=== PATIENT | female | born 1970 | race Caucasian/White ===

== ENCOUNTER 2024-09-02 12:49 | Outpatient (REF) | payer BC, SELFPAY ==
[2024-09-02 13:17] LABS: MANUAL DIFF FLAG NO
[2024-09-02 13:37] LABS: Basophils Percent Auto 0.6 % (0-2); Eosinophils Absolute Auto 0.1 X10*3/uL (0.0-0.4); Eosinophils Percent Auto 1.1 % (0-4); Hematocrit 42.2 % (37.0-47.0); Hemoglobin 14.1 g/dl (12.0-16.0); Imm Gran Abs Auto 0.02 X10*3/uL (0.00-0.03); Imm Gran Pct Auto 0.3 % (0.0-0.4); Lymphocytes Absolute Auto 2.3 X10*3/uL (1.2-4.9); Lymphocytes Percent Auto 34.3 % (20-40); Mean Corpuscular HGB Conc 33.4 g/dl (31.0-35.0); Mean Corpuscular Hemoglobin 29.1 pg (27.0-33.0); Mean Corpuscular Volume 87.2 fL (80.0-98.0); Mean Platelet Volume 9.3 fL (9.4-12.3); Monocytes Absolute Auto 0.6 X10*3/uL (0.1-1.2); Monocytes Percent Auto 8.6 % (2-11); Neutrophils Absolute Auto 3.6 x10*3/uL (2.0-8.3); Neutrophils Percent Auto 55.1 % (45-73); Platelet Count 253 X10*3/uL (160-400); Red Blood Count 4.84 X10*6/uL (4.20-5.50); Red Cell Distribution Width 12.1 % (11.0-16.0); White Blood Count 6.6 X10*3/uL (4.8-10.8)
[2024-09-02 14:05] LABS: Alanine Aminotransferase 38 U/L (0-31); Albumin Level 4.6 g/dL (3.5-5.0); Alkaline Phosphatase 94 U/L (39-117); Amylase 48 U/L (28-100); Anion Gap 9 (12-20); Aspartate Amino Transferase 31 U/L (5-31); Bilirubin Direct 0.2 mg/dL (0.0-0.5); Bilirubin Total 0.7 mg/dL (0.0-1.0); Blood Urea Nitrogen 12 mg/dL (9-16); C Reactive Protein 0.71 mg/dL (< or = 0.50); Calcium 9.9 mg/dL (8.4-10.2); Carbon Dioxide 28 mmol/L (22-29); Chloride 107 mmol/L (96-108); Estimated Glomerular Filt Rate > 60; Glucose Random 93 mg/dL (60-115); Lipase 16 U/L (8-78); Potassium 4.8 mmol/L (3.3-5.1); Sodium 139 mmol/L (135-145); Total Protein 7.6 g/dL (6.5-8.0)
[2024-09-02 14:37] LABS: Erythrocyte Sedimentation Rate 11 MM/HR (0-20)
[2024-09-04 00:48] LABS: Immunoglobulin A 177 mg/dL (47-310)
[2024-09-06 19:53] LABS: Gliadin Deamidated IgA Ab <1.0 U/mL; Gliadin Deamidated IgG Ab <1.0 U/mL; Transglutaminase Ab IgG <1.0 U/mL; Transglutaminase IgA <1.0 U/mL
[2024-09-07 23:59] LABS: Endomysial IgA Antibody Negative (Negative)
== END 2024-09-02 12:50 | disposition home or self-care (01) ==
LOC: HO.10HDL 12:49
PROVIDERS: Visit Provider Internal Medicine
DX: R11.2 Nausea with vomiting, unspecified (principal)
CPT/HCPCS: 36415; 80048; 80076; 82150; 82784; 83690; 85025; 85652; 86140; 86231; 86258; 86364

== ENCOUNTER 2024-09-07 16:55 | Outpatient (REF) | payer BC, SELFPAY ==
[2024-09-08 09:02] LABS: Adenovirus F 40/41 Not Detected (Not Detect.); Astrovirus Not Detected (Not Detect.); Campylobacter Not Detected (Not Detect.); Cryptosporidium Not Detected (Not Detect.); Cyclospora cayetanensis Not Detected (Not Detect.); E. coli EAEC Not Detected (Not Detect.); E. coli EPEC Not Detected (Not Detect.); E. coli ETEC Not Detected (Not Detect.); E. coli STEC Not Detected (Not Detect.); Entamoeba histolytica Not Detected (Not Detect.); Giardia lamblia Not Detected (Not Detect.); Norovirus GI/GII Not Detected (Not Detect.); Plesiomonas shigelloides Not Detected (Not Detect.); Rotavirus A Not Detected (Not Detect.); Salmonella Not Detected (Not Detect.); Sapovirus Not Detected (Not Detect.); Shigella sp./EIEC Not Detected (Not Detect.); Vibrio Not Detected (Not Detect.); Vibrio Cholerae Not Detected (Not Detect.); Yersinia enterocolitica Not Detected (Not Detect.)
== END 2024-09-07 16:56 | disposition home or self-care (01) ==
LOC: HO.LNP 16:55
PROVIDERS: Visit Provider Internal Medicine
DX: R11.2 Nausea with vomiting, unspecified (principal)
CPT/HCPCS: 87329; 87507

== ENCOUNTER 2024-09-09 09:03 | Outpatient (REF) | payer BC, SELFPAY ==
--- NOTE | ~2024-09-09 | US_ITS ---
EXAMINATION: US ABDOMEN COMPLETE CLINICAL INFORMATION: Nausea with vomiting. COMPARISON: None available. TECHNIQUE: Real-time imaging of the abdominal viscera using grayscale and color Doppler technique. FINDINGS: PANCREAS: No peripancreatic fluid collections ABDOMINAL AORTA: 2.2 cm in the proximal segment.. INFERIOR VENA CAVA: Not identified LIVER: Liver is enlarged. Increased echotexture. No nodular surface. No solid or cystic lesion. Main portal vein is patent with normal hepatopedal flow direction. No intrahepatic biliary ductal dilatation. GALLBLADDER: Fluid-filled. No pericholecystic fluid collection or gallbladder wall thickening. COMMON BILE DUCT: Measures 2 mm in diameter. RIGHT KIDNEY: Measures 11 cm. Normal echotexture. Normal renal cortical medullary junction. No solid or cystic lesion. Normal flow on color Doppler interrogation of the renal hilum. Extrarenal pelvis.. LEFT KIDNEY: 11 cm. Normal echotexture. No solid or cystic lesion. Normal flow on color differentiation of the renal hilum.. SPLEEN: Normal echotexture The spleen measures 10.0 cm in maximum dimension. FREE FLUID: None. US/US abdomen complete IMPRESSION: Hepatomegaly and steatosis. No cholelithiasis. No hydronephrosis. No ascites. Electronically signed by: Guevara Isidro MD 09/23/2024 02:08 PM JUDSON
== END 2024-09-09 09:04 | disposition home or self-care (01) ==
LOC: HO.US 09:03
PROVIDERS: PCP Internal Medicine; Visit Provider Internal Medicine
DX: R11.2 Nausea with vomiting, unspecified (principal)
CPT/HCPCS: 76700

== ENCOUNTER → 2024-09-09 09:17 | Outpatient (BNV) | payer BC, SELFPAY | PROVIDERS: PCP Internal Medicine; Visit Provider Radiology Diagnostic Radiology | DX: R11.2 Nausea with vomiting, unspecified (principal) | CPT/HCPCS: 76700 ==

== ENCOUNTER 2024-10-11 12:29 | Day surgery (SDC) | payer BC, SELFPAY ==
[2024-10-07 12:49] VITALS: BMI 28.7
--- NOTE | 2024-10-07 13:29 | P.CONAN_ITS ---
Documented by User: Kimber Crowe NP 10/07/24 13:30 HPI - Anesthesia Eval Consult details Narrative: 54yo F for [facility] End[facility] Past Medical History Medical History Nausea & vomiting Fatty liver Depression Pre-diabetes Asthma Surgical History Surgical History H/O colonoscopy Hx of appendectomy Hx of shoulder surgery Hx of section H/O dilation and curettage Social History Social History Are you a primary residential care officer to a significant other at home: No Do you presently have visiting nurse or other home services: No Patient Tobacco Use Status: Never used Tobacco Use of substances other than those prescribed or required for medical reasons: Yes Have you been hit, kicked, punched, or otherwise hurt by someone within the past year? If so, by whom?: No Are you DNR?: No Advance Directives: No Advance Directives Information Provided: Yes Recently lost weight without trying: No Meds Allergies Allergy/AdvReac Type Severity Reaction Status Date / Time cat dander [cats] Allergy Unknown Verified 10/07/24 12:33 mite-Dermatophagoides Allergy Unknown Verified 10/07/24 12:33 farinae, shashi [dust mite - [place]] Seasonal Allergies Allergy Unknown Verified 10/07/24 12:33 tree and shrub pollen Allergy Unknown Verified 10/07/24 12:33 Home Medications ?Medication ?Instructions ?Recorded ?Confirmed ?Last Taken ?Type fluoxetine 20 mg capsule 40 mg PO DAILY 10/07/24 10/07/24 Unknown History lactobacillus combination no.4 3 3,000 mmu cells PO DAILY 10/07/24 10/07/24 Unknown History billion cell capsule (Probiotic) loratadine 10 mg tablet (Claritin) 10 mg PO DAILY 10/07/24 10/07/24 Unknown History multivitamin 1 tab PO DAILY 10/07/24 10/07/24 Unknown History Exam Height,Weight and Vital Signs: Height 5 ft 6 in Weight 80.739 kg Assessment and Plan Assessment Anesthesia Assessment: Chart Reviewed Documented by User: Leatha Knapp MD 10/11/24 14:26 PMF Past Medical History Medical History Nausea & vomiting Fatty liver Depression Pre-diabetes Asthma Functional capacity: independent ambulation Surgical History Surgical History H/O colonoscopy Hx of appendectomy Hx of shoulder surgery Hx of section H/O dilation and curettage History of Problems with Anesthesia: No Social History Social History Are you a primary residential care officer to a significant other at home: No Do you presently have visiting nurse or other home services: No Patient Tobacco Use Status: Never used Tobacco Use of substances other than those prescribed or required for medical reasons: Yes Have you been hit, kicked, punched, or otherwise hurt by someone within the past year? If so, by whom?: No Are you DNR?: No Advance Directives: No Advance Directives Information Provided: Yes Recently lost weight without trying: No Meds Allergies Allergy/AdvReac Type Severity Reaction Status Date / Time cat dander [cats] Allergy Unknown Verified 10/07/24 12:33 mite-Dermatophagoides Allergy Unknown Verified 10/07/24 12:33 farinae, shashi [dust mite - [place]] Seasonal Allergies Allergy Unknown Verified 10/07/24 12:33 tree and shrub pollen Allergy Unknown Verified 10/07/24 12:33 Home Medications ?Medication ?Instructions ?Recorded ?Confirmed ?Last Taken ?Type fluoxetine 20 mg capsule 40 mg PO DAILY 10/07/24 10/07/24 Unknown History lactobacillus combination no.4 3 3,000 mmu cells PO DAILY 10/07/24 10/07/24 Unknown History billion cell capsule (Probiotic) loratadine 10 mg tablet (Claritin) 10 mg PO DAILY 10/07/24 10/07/24 Unknown History multivitamin 1 tab PO DAILY 10/07/24 10/07/24 Unknown History Exam Airway Mallampati Class: II TM Dist: >3cm Neck ROM: Full Loose/Missing/Broken Teeth: No Heart: RRR Lungs: CTA Assessment and Plan Assessment Anesthesia Assessment: Anesthesia Plan Discussed Final Anesthetic Review History of Problems with Anesthesia: No NPO: Yes ASA Class: II Final Preanesthetic Review: Meds/Allgs Chart Reviewed, Consent Obtained/Reviewed and Anes Risks/Benef Reviewed Patient Risk: Low Procedure Risk: Intermediate Anesthetic Plan Anesthetic Plan: MAC: Disposition: Standard PACU
[2024-10-11 12:49] VITALS: BP 127/82; PULSE 76; RESP 16; TEMP 36.7; O2SAT 97; BMI 28.4
[2024-10-11] MEDS: Lactated Ringers 1,000 ML 100 ML IVCONT (13:01)
[2024-10-11 15:47] VITALS: BP 109/57; PULSE 63; RESP 16; TEMP 36.7; O2SAT 98
[2024-10-11 16:01] VITALS: BP 113/65; PULSE 46; RESP 16
[2024-10-11 16:16] VITALS: BP 122/67; PULSE 46; RESP 16; O2SAT 97
[2024-10-11 16:27] VITALS: BP 131/82; PULSE 53; RESP 16; TEMP 36.8; O2SAT 98
--- NOTE | 2024-10-11 17:40 | PM.OP ---
Brief Operative Note Date of Service: 10/11/24 Pre-op diagnosis: Vomiting, Screening Post-op diagnosis: other (GERD with esophagitis, Hiatal hernia, Gastritis, R/O Celiac disease and H.pylori, Diverticulosis, Internal hemorrhoids) Procedure: EGD with biopsies, Colonoscopy to the cecum and TI Surgeon: Antwan Gaviria MD Anesthesia: MAC Was an City Superintendent used for this Procedure?: No Estimated blood loss (mL): 2.0 Pathology: other (A. Descending duodenum B. Gastric antrum C. EG Junction at 35cm) Condition: stable Disposition: PACU
--- NOTE | 2024-10-12 02:10 | OP_ITS ---
DATE OF SERVICE: 10/11/2024 SURGEON: Antwan Gaviria MD INDICATIONS: The patient presents for evaluation of intermittent vomiting, reported history of colon polyps, and need for colorectal cancer screening. Full consent was obtained from her for this, including risks of bleeding and perforation. PREOPERATIVE DIAGNOSIS: POSTOPERATIVE DIAGNOSIS: PROCEDURE PERFORMED: Esophagogastroduodenoscopy with biopsies, and colonoscopy to the cecum and terminal ileum. ESTIMATED BLOOD LOSS: COMPLICATIONS: ANESTHESIA: Medication used, monitored anesthesia care. ASSISTANTS: SPECIMENS: PREOPERATIVE DIAGNOSES: Intermittent vomiting, history of colon polyps, colorectal cancer screening. POSTOPERATIVE DIAGNOSES: Intermittent vomiting, history of colon polyps, colorectal cancer screening, esophagitis, rule out Wells's esophagus, hiatal hernia, gastritis, rule out celiac disease, sigmoid diverticulosis, and internal hemorrhoids. DESCRIPTION OF PROCEDURE: The patient was placed in the left lateral decubitus position. The Olympus video gastroscope was passed in the posterior oropharynx and upper esophagus under direct vision. The scope was passed slowly to the distal esophagus. The gastroesophageal junction appeared at 35 cm. This area was notable for edema, erythema, some irregularity with less than 1 cm areas of possible Wells's mucosa, and 1 linear erosion measuring about 1 cm in length. There was some friability as well. The scope entered the stomach. There was a small hiatal hernia. The scope was advanced to pylorus and the duodenum was cannulated to the descending portion. The duodenum, including the bulb, appeared normal without mass or ulceration. Biopsies were obtained from the 2nd and 3rd portions of duodenum. The scope was withdrawn back to the stomach. The gastric antrum and body had some changes of gastritis with some erythema, edema, and some minimal friability. There were no erosions nor ulceration. There was good peristalsis. Biopsies were obtained from the antrum. The scope was retroflexed visualizing the proximal stomach carefully, which appeared normal, without any sign of mass or ulceration. Scope was straightened and withdrawn back to the esophagus. Multiple biopsies were obtained at the EG junction at 35 cm. Proximal to this, the esophageal mucosa appeared normal. The scope was withdrawn from the patient. She was turned around for colonoscopy. The digital rectal exam revealed no abnormalities. The Olympus video pediatric colonoscope was entered into the rectum and advanced easily to the cecum. Once in the cecum, I did identify normal-appearing cecal pouch with appendiceal orifice and a normal-appearing ileocecal valve. The terminal ileum was cannulated and appeared normal. The scope was withdrawn back in the colon. The entire cecum and ileocecal valve appeared normal. The scope was slowly withdrawn assessing all mucosal surfaces carefully. Preparation was excellent. I did not visualize any sign of polyps, colitis nor angiodysplasia. There were occasional diverticula in the sigmoid colon. In the rectum, scope was retroflexed visualizing internal hemorrhoids, but no other pathology. The rectal mucosa appeared normal. The scope was straightened and withdrawn from the patient. She tolerated both procedures well and was returned to the recovery area in stable condition. IMPRESSION: 1. Reflux esophagitis, rule out Wells's esophagus. 2. Hiatal hernia. 3. Mild gastritis. 4. Rule out celiac disease. 5. Sigmoid diverticulosis. 6. Internal hemorrhoids. PLAN: The results of the biopsies will be checked. Given today's findings, I am going to start her on omeprazole 40 mg daily. I will plan to see her in followup and then at that point, decide about possibly repeating the upper endoscopy to be sure things have healed and there is no underlying Wells's esophagus. She was advised to avoid all aspirin and NSAIDs for at least 2 weeks. I would recommend a repeat colonoscopy in 5 years given her reported previous history of colon polyps. I will obtain a copy of her previous pathology report and if there were not any tubular adenomas then we could always change that to a colonoscopy every 10 years, as she does not have any family history of colon cancer. In regard to her intermittent episodes of vomiting, this has been fairly quiet recently and we shall continue to observe that. Recent laboratories and stool specimens, as well as an abdominal ultrasound, were all nonrevealing. This has been discussed with her . She will be seen in 2024 for a followup visit. MD KRYSTINA Ramsey/FRANCESCO / [id number] MIGUEL
== END 2024-10-11 16:34 | disposition home or self-care (01) ==
PROVIDERS: PCP Internal Medicine; Visit Provider Internal Medicine
PROC: (CPT 43239; principal; 2024-10-11 13:40)
DX: K21.00 Gastro-esophageal reflux disease with esophagitis, without bleeding (principal); K29.60 Other gastritis without bleeding; K44.9 Diaphragmatic hernia without obstruction or gangrene; R11.2 Nausea with vomiting, unspecified; Z12.11 Encounter for screening for malignant neoplasm of colon; K57.30 Diverticulosis of large intestine without perforation or abscess without bleeding; K64.8 Other hemorrhoids; Z86.0101 Personal history of adenomatous and serrated colon polyps; J45.909 Unspecified asthma, uncomplicated; E11.9 Type 2 diabetes mellitus without complications
CPT/HCPCS: 43239; 45378; 88305; 88313; 88342; J1100; J1596; J2003; J2704